=== PATIENT | female | born 1960 | race Caucasian/White ===

== ENCOUNTER 2022-09-28 05:31 | Day surgery (SDC) | payer OTHER ==
[2022-09-27 08:31] VITALS: BMI 22.1
[2022-09-28 08:28] VITALS: TEMP 97.1
[2022-09-28 08:58] VITALS: BP 96/49; PULSE 59; RESP 14
== END 2022-09-28 09:10 | disposition home or self-care (01) ==
LOC: JASU-ENDO 05:31
PROVIDERS: ATTEND Internal Medicine Gastroenterology
PROC: 0DJD8ZZ Inspection of Lower Intestinal Tract, Via Natural or Artificial Opening Endoscopic (ICD-10-PCS; principal; 2022-09-28 08:00)
DX: R19.4 Change in bowel habit (principal); K63.89 Other specified diseases of intestine